=== PATIENT | male | born 1950 | race Hispanic/Latino ===

== ENCOUNTER 2019-04-12 10:00 | Outpatient (RCR) | payer MEDICARE | END 2019-04-13 | LOC: PT 10:00 | PROVIDERS: ATTEND Neurological Surgery | DX: M51.26 Other intervertebral disc displacement, lumbar region (principal); E11.9 Type 2 diabetes mellitus without complications ==

== ENCOUNTER 2019-05-02 09:59 | Outpatient (RCR) | payer MEDICARE | END 2019-05-13 | LOC: PT 09:59 | PROVIDERS: ATTEND Neurological Surgery | DX: M51.26 Other intervertebral disc displacement, lumbar region (principal) | CPT/HCPCS: 97139 ==